=== PATIENT | male | born 1965 | race Caucasian/White ===

== ENCOUNTER 2021-02-19 17:28 | Emergency (ER) | payer MEDICARE, MEDICAID, SELFPAY ==
--- NOTE | 2021-02-19 17:47 | ED.ALCOHOL ---
HPI - Alcohol General Chief Complaint: ETOH/Substance Use Stated Complaint: ETOH Time Seen by Provider: 02/19/21 17:34 Source: patient and EMS History of Present Illness HPI narrative: Patient states he has a long history of daily alcohol use. Today he is drinking vodka. He was found by police intoxicated and EMS was called. He has no physical complaints. He states he has been through detox unsuccessfully more times anything count. He has never had a [address]. He denies other drugs such as opioids. He does smoke tobacco daily. He apparently has a long history of untreated hypertension. He states he also has diabetes. No abdominal pain or vomiting No recent fevers or chills. He states he would go to detox if a bed is available Related Data Allergies Allergy/AdvReac Type Severity Reaction Status Date / Time No Known Allergies Allergy Verified 02/19/21 18:19 Review of Systems Constitutional: Constitutional: Denies fever(s) Cardiovascular: Cardiovascular: Denies chest pain and Denies dyspnea Respiratory: Respiratory: Denies dyspnea Gastrointestinal: Comments: No abdominal pain. No nausea vomiting diarrhea. Musculoskeletal: Comments: No recent injuries Neurologic: Comments: No weakness numbness or paresthesias Psychiatric: Psychiatric: Reports depression, Denies homicidal ideation and Denies suicidal ideation Comments: Patient states he is depressed because his girlfriend kicked him out of the house quite sometime ago. He states that is why he drinks. No suicidal thoughts Endocrine: Comments: Patient states he has a history of untreated diabetes [facility] Social History Social History Advance Directives: No Advance Directives Information Provided: No Physical Exam Vital Signs: Vital Signs: Last Vital Signs Temp 98 F 02/19/21 17:49 Pulse 98 02/19/21 17:49 BP 190/108 H 02/19/21 17:49 Pulse Ox 96 02/19/21 17:49 Body Mass Index 29.8 Const: Other: Awake alert no acute distress. Orientation/consciousness: patient oriented x3 HENMT: Other: ETOH halitosis. Conjunctival injection. No obvious head trauma Resp: Other: Clear and equal bilaterally without respiratory difficulty GI: Other: No abdominal pain or tenderness. No distention. No hepatomegaly Skin: Other: No obvious rash. No jaundice Neuro: General: patient oriented x3 and no focal motor deficits Extrem: Other: No obvious extremity trauma Psych: Other: Depression without suicidal ideation Course Course Course Narrative: Alcohol intoxication Untreated hypertension Untreated diabetes Depression without suicidal ideation Labs and a tox screen. Will hold the patient until sober. No. Detox beds available at this moment. Will check again later Patient left prior to completing observation time. He was ambulating without difficulty and without slurred speech. Discharge Plan Discharge Clinical Impression: Alcohol abuse, Hypertension Patient Disposition: Home, Self-Care Instructions: Hypertension (ED), Alcohol Use Disorder (ED) Discharge Date/Time: 02/19/21 19:44
[2021-02-19 17:49] VITALS: BP 190/108; BP 220/140; PULSE 100; PULSE 98; TEMP 36.6; O2SAT 96; BMI 29.8
--- NOTE | 2021-02-19 19:18 | MHC.RECOVSUP ---
? Reason for consult Recovery Support o Current location: [facility] o Identified substance use concern: Alcohol - Seeking ATS (detox) - Support ? Intervention: o Community resources provided o Harm reduction discussion ? Plan: o Referral to [facility] o Follow up tomorrow o Patient to follow up with H after discharge ? 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 So Patient agree to go in the morning to [facility] to get assistance in getting to a detox.
[2021-02-19] MEDS: Nicotine 21 MG PATCH.TD24 TRANSDERMA (19:38)
== END 2021-02-19 19:44 | disposition home or self-care (01) ==
PROVIDERS: Emergency Provider Emergency Medicine
DX: F10.10 Alcohol abuse, uncomplicated (principal); Y90.9 Presence of alcohol in blood, level not specified; I10 Essential (primary) hypertension; E11.9 Type 2 diabetes mellitus without complications; F32.9 Major depressive disorder, single episode, unspecified; R45.851 Suicidal ideations; F17.210 Nicotine dependence, cigarettes, uncomplicated
CPT/HCPCS: 99282